=== PATIENT | female | born 1995 | race African-American/Black ===

== ENCOUNTER 2018-11-02 08:14 | Emergency (ER) | payer OTHER ==
[~2018-11-02] VITALS: Ht 170.2 cm; Wt 93.0 kg
[2018-11-02 08:32] LABS: URINE BILIRUBIN NEGATIVE (Negative); URINE BLOOD 1+ (Negative); URINE CLARITY CLEAR; URINE COLOR YELLOW; URINE GLUCOSE-RANDOM* NEGATIVE (Negative); URINE KETONES NEGATIVE (Negative); URINE LEUKOCYTES-REFLEX NEGATIVE (Negative); URINE NITRITE-REFLEX NEGATIVE (Negative); URINE PROTEIN (DIPSTICK) NEGATIVE (Negative); URINE SPECIFIC GRAVITY <= 1.005 (1.005-1.035); URINE UROBILINOGEN 0.2 E.U./dl (0.2-1.0)
[2018-11-02 08:41] LABS: SQUAMOUS 4-10 Moderate /LPF (0-3)
[2018-11-02 08:44] LABS: BACTERIA-REFLEX 1-9 Few /HPF (None Seen); URINE RBC 0-2 Rare /HPF (0-2); URINE WBC-REFLEX 0-5 Rare /HPF (0-5)
[2018-11-02 08:45] LABS: CASTS None Seen /LPF (None Seen); CRYSTALS None Seen /LPF (None Seen)
[2018-11-02 09:53] VITALS: BP 118/71
== END 2018-11-02 11:07 | disposition home or self-care (01) ==
LOC: ER 08:14
PROVIDERS: Emergency Medicine
DX: R11.2 Nausea with vomiting, unspecified (principal); Z90.49 Acquired absence of other specified parts of digestive tract

== ENCOUNTER 2019-06-28 16:22 | Emergency (ER) | payer OTHER ==
[~2019-06-28] VITALS: Ht 170.2 cm; Wt 94.8 kg
[2019-06-28 17:22] LABS: URINE BILIRUBIN NEGATIVE (Negative); URINE BLOOD 3+ (Negative); URINE CLARITY CLOUDY; URINE COLOR RED; URINE GLUCOSE-RANDOM* NEGATIVE (Negative); URINE KETONES NEGATIVE (Negative); URINE LEUKOCYTES-REFLEX NEGATIVE (Negative); URINE PROTEIN (DIPSTICK) 2+ (Negative); URINE SPECIFIC GRAVITY >= 1.030 (1.005-1.035)
[2019-06-28 17:26] LABS: URINE NITRITE-REFLEX POSITIVE (Negative)
[2019-06-28 17:33] LABS: BACTERIA-REFLEX 1-9 Few /HPF (None Seen); CASTS None Seen /LPF (None Seen); CRYSTALS None Seen /LPF (None Seen); SQUAMOUS 4-10 Moderate /LPF (0-3); URINE RBC >20 Many /HPF (0-2)
[2019-06-28 17:34] LABS: URINE WBC-REFLEX None Seen /HPF (0-5)
[2019-06-28 17:40] LABS: ABSOLUTE NEUTROPHILS 5.5 thou/uL (1.4-8.2); BASOPHILS 0.9 % (0.0-2.0); HEMATOCRIT 41.5 % (37.0-47.0); HEMOGLOBIN 13.8 gm/dL (12.0-15.0); LYMPHOCYTES 28.8 % (24.0-44.0); MCH 29.2 pg (26.0-34.0); MCHC 33.3 g/dL (28.0-37.0); MCV 87.6 fL (80.0-100.0); MONOCYTES 5.6 % (1.0-8.0); PLATELET COUNT 292 thou/uL (150-400); POLYS 60.7 % (36.0-66.0); RBC 4.74 mil/uL (4.20-5.00); RDW 12.8 % (10.5-14.5)
[2019-06-28 17:48] LABS: CREATININE 0.7 mg/dL (0.6-1.0); POTASSIUM 3.5 mmol/L (3.5-5.1)
[2019-06-28 17:54] LABS: TOTAL BILIRUBIN 0.3 mg/dL (<0.1-1.0); TOTAL PROTEIN 8.2 g/dL (6.4-8.2)
[2019-06-28] MEDS ORDERED: MOBIC7.5 MG PO (18:51)
[2019-06-28] MEDS ORDERED: BACTRIM DS TAB1 EACH PO (18:51)
[2019-06-28 19:00] VITALS: BP 126/72
== END 2019-06-28 17:00 | disposition home or self-care (01) ==
LOC: ER 16:22
PROVIDERS: Physician Assistant
DX: N39.0 Urinary tract infection, site not specified (principal); M54.5 Low back pain